=== PATIENT | male | born 1985 | race Caucasian/White ===

== ENCOUNTER 2017-10-16 14:49 | Emergency (ER) | payer SELFPAY ==
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
[2017-10-16] MEDS ORDERED: HYDROcodone/Acetaminophen 5/325 mg Tablet ONE (16:36)
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
== END 2017-10-16 17:06 | disposition home or self-care (01) ==
LOC: ERS 14:49
DX: S92.354A Nondisplaced fracture of fifth metatarsal bone, right foot, initial encounter for closed fracture (principal); S50.312A Abrasion of left elbow, initial encounter; S50.311A Abrasion of right elbow, initial encounter; S80.211A Abrasion, right knee, initial encounter; V23.4XXA Motorcycle driver injured in collision with car, pick-up truck or van in traffic accident, initial encounter
CPT/HCPCS: 72170; 86850; 86900; 86901; G0390

== ENCOUNTER 2025-02-21 09:12 | Emergency (ER) | payer OTHER | END 2025-02-21 11:11 | disposition home or self-care (01) | LOC: ERS 09:12 → EEVIPCON 09:12 → ERS 11:11 | DX: S80.212A Abrasion, left knee, initial encounter (principal); M79.671 Pain in right foot; V49.60XA Unspecified car occupant injured in collision with unspecified motor vehicles in traffic accident, initial encounter | CPT/HCPCS: 99284 ==